=== PATIENT | female | born 1980 | race Caucasian/White ===

== ENCOUNTER 2022-09-05 12:39 | Emergency (ER) | payer MEDICAID, OTHER ==
[~2022-09-05] VITALS: Ht 162.6 cm; Wt 86.4 kg
[2022-09-05] MEDS ORDERED: SODIUM CHLORIDE 0.9% 1,000 ML IV ONE (13:00)
[2022-09-05] MEDS ORDERED: ACETAMINOPHEN 500 MG TABLET PO ONE (13:00)
[2022-09-05 13:09] LABS: COVID AG,FIA SOURCE NASAL SWAB
[2022-09-05 13:38] LABS: RAPID GROUP A STREP POSITIVE (NEGATIVE)
[2022-09-05 13:42] LABS: INFLUENZA TYPE A NEGATIVE FOR TYPE A (NEGATIVE); INFLUENZA TYPE B NEGATIVE FOR TYPE B (NEGATIVE)
[2022-09-05] MEDS ORDERED: KETOROLAC TROMETHAMINE 30 MG/ML VIAL IVP ONE (13:45)
[2022-09-05 15:40] VITALS: BP 119/72
[2022-09-05] MEDS ORDERED: AMOX500C2 PO (15:43)
== END 2022-09-05 15:53 | disposition home or self-care (01) ==
LOC: EMS 12:47
DX: J02.0 Streptococcal pharyngitis (principal); G89.29 Other chronic pain; Z20.822 Contact with and (suspected) exposure to COVID-19
CPT/HCPCS: 99283; 96374; 96361; 87426; 87430; 87804; J1885; J7030